=== PATIENT | male | born 1960 | race Caucasian/White ===

== ENCOUNTER 2017-04-26 19:55 | Emergency (ER) | payer BC ==
[2017-04-26] MEDS ORDERED: Fluorescein Opthalmic Strip ONE (20:32)
[2017-04-26] MEDS ORDERED: Proparacaine 0.5% Opth 15 ML BOT ONE (20:32)
== END 2017-04-26 21:15 | disposition home or self-care (01) ==
LOC: ERS 19:55
DX: S05.01XA Injury of conjunctiva and corneal abrasion without foreign body, right eye, initial encounter (principal); G47.00 Insomnia, unspecified; X58.XXXA Exposure to other specified factors, initial encounter; Y92.009 Unspecified place in unspecified non-institutional (private) residence as the place of occurrence of the external cause
CPT/HCPCS: 99283

== ENCOUNTER 2022-09-19 18:44 | Emergency (ER) | payer BC, OTHER ==
[2022-09-19] MEDS ORDERED: Boostrix 0.5 ML (Tdap) VIAL (>/=7 yrs of age) ONE (19:04)
[2022-09-19] MEDS ORDERED: Dexamethasone 10 MG/ML VIAL ONE (19:57)
[2022-09-19] MEDS ORDERED: Ketorolac Tromethamine 30 MG/ML VIAL ONE (19:58)
== END 2022-09-19 20:30 | disposition home or self-care (01) ==
LOC: ERS 18:44
DX: S02.40CA Maxillary fracture, right side, initial encounter for closed fracture (principal); S02.31XA Fracture of orbital floor, right side, initial encounter for closed fracture; S02.841A Fracture of lateral orbital wall, right side, initial encounter for closed fracture; S01.111A Laceration without foreign body of right eyelid and periocular area, initial encounter; M25.511 Pain in right shoulder; V19.9XXA Pedal cyclist (driver) (passenger) injured in unspecified traffic accident, initial encounter
CPT/HCPCS: 70450; 70486; 90471; 90715; 96374; 96375; J1100; J1885